=== PATIENT | female | born 1955 | race Asian ===

== ENCOUNTER 2017-11-02 08:35 | Outpatient (CLI) | payer OTHER ==
[2017-11-02 13:49] LABS: BASOPHILS % (AUTO) 0.8 %; EOSINOPHILS # (AUTO) 0.1 10^3/uL (0.0-0.7); EOSINOPHILS % (AUTO) 1.5 %; HCT - HEMATOCRIT 44.4 % (37.0-47.0); LYMPHOCYTES # (AUTO) 2.1 10^3/uL (1.5-3.5); LYMPHOCYTES % (AUTO) 39.1 %; MEAN CORPUSCULAR HEMOGLOBIN 30.8 pg (27.0-31.0); MEAN CORPUSCULAR HGB CONC 33.8 g/dL (32.0-36.0); MEAN CORPUSCULAR VOLUME 91.1 fL (81.0-99.0); MEAN PLATELET VOLUME 8.7 fL (7.9-10.8); MONOCYTES # (AUTO) 0.4 10^3/uL (0.0-1.0); NEUTROPHILS # (AUTO) 2.6 10^3/uL (1.5-6.6); NEUTROPHILS % (AUTO) 50.6 %; NUCLEATED RED BLOOD CELLS AUTO 0.1 /100WBC; RED BLOOD COUNT 4.87 10^6/uL (4.20-5.40); RED CELL DISTRIBUTION WIDTH 13.3 % (12.0-15.0); UNCORRECTED WHITE BLOOD COUNT 5.2 x10^3/uL; WHITE BLOOD COUNT 5.2 x10^3/uL (4.8-10.8)
[2017-11-02 14:01] LABS: ALBUMIN/GLOBULIN RATIO 1.3 (1.0-2.2); BILIRUBIN,TOTAL 0.6 mg/dL (0.2-1.0); BUN - BLOOD UREA NITROGEN 17 mg/dL (6-20); CALCIUM 9.6 mg/dL (8.5-10.3); CARBON DIOXIDE - CO2 30 mmol/L (21-32); CHLORIDE 98 mmol/L (101-111); CHOL/HDL RATIO 3.8 (<4.4); CHOLESTEROL 225 mg/dL; CREATININE 0.7 mg/dL (0.4-1.0); GFR - MDRD 85 (>89); GLUCOSE 97 mg/dL (70-100); HDL CHOLESTEROL 60 mg/dL; LDL/HDL RATIO 2.1 (<4.4); POTASSIUM 3.9 mmol/L (3.5-5.0); SODIUM 139 mmol/L (135-145); TOTAL PROTEIN 7.9 g/dL (6.7-8.2); TRIGLYCERIDES 194 mg/dL; VLDL CHOLESTEROL 39 mg/dL
== END 2017-11-02 08:36 | disposition home or self-care (01) ==
LOC: LAB.R 08:35
PROVIDERS: ATTEND Nurse Practitioner Primary Care
DX: I10 Essential (primary) hypertension (principal); Z79.899 Other long term (current) drug therapy; E78.5 Hyperlipidemia, unspecified
CPT/HCPCS: 80053; 80061; 85025

== ENCOUNTER 2017-11-17 07:51 | Outpatient (CLI) | payer OTHER ==
--- NOTE | 2017-11-18 17:15 | Mammography Report ---
EXAM: DIGITAL BILATERAL SCREENING MAMMOGRAM: 11/17/2017 CLINICAL INDICATION: A 62-year-old with history of bilateral implants, for screening. COMPARISON: 10/2015, 06/2013, 04/2011, 12/2008, 11/2007. TECHNIQUE: Routine CC and MLO projections were obtained of the breasts. Bilateral implant-displaced views. FINDINGS: The breasts again demonstrate scattered fibroglandular densities bilaterally. Bilateral subglandular silicone implants are stable. No suspicious masses, clustered microcalcifications, or regions of architectural distortion are identified. IMPRESSION: BENIGN FINDINGS. RECOMMENDATIONS: Routine annual screening unless otherwise clinically indicated. BIRADS CATEGORY 2-BENIGN FINDINGS. STANDARD QUALIFYING STATEMENTS: 1. This examination was reviewed with the aid of Computer-Aided Detection (CAD) . 2. A negative or benign imaging report should not delay biopsy if clinically suspicious findings are present. Consider surgical consultation if warranted. More than 5% of cancers are not identified by imaging. 3. Dense breasts may obscure an underlying neoplasm. TD: 11/18/2017 17:14 NOHEMI
== END 2017-11-17 07:52 | disposition home or self-care (01) ==
LOC: DI 07:51
PROVIDERS: ATTEND Nurse Practitioner Primary Care
DX: Z12.31 Encounter for screening mammogram for malignant neoplasm of breast (principal); Z00.00 Encounter for general adult medical examination without abnormal findings
CPT/HCPCS: 77067

== ENCOUNTER 2017-11-17 07:52 | Outpatient (CLI) | payer OTHER ==
--- NOTE | 2017-11-19 11:56 | DEXA Report ---
DEXA SCAN: 11/17/2017 CLINICAL INDICATION: Postmenopausal. TECHNIQUE: Dual energy x-ray absorptiometry (DXA) was performed on a [employer] system. Regions measured are the AP spine, femoral neck, and, if needed, forearm. COMPARISON: None. In accordance with the International Society for Clinical Densitometry (ISCD) guidelines, data from previous exams may be reanalyzed using current recommendations and techniques. This is done to allow a more accurate basis for comparison with the current study. FINDINGS: The data for the lumbar spine is as follows: REGION BMD (g/cm/cm) T-SCORE Z-SCORE L1 1.233 0.9 2.3 L2 1.374 1.5 2.9 L3 1.482 2.3 3.8 L4 1.559 3.0 4.5 TOTAL 1.427 2.1 3.5 NOTE: All evaluable vertebrae are used for classification. The data for the hip is as follows: REGION BMD (g/cm/cm) T-SCORE Z-SCORE Neck 0.736 -2.2 -0.8 TOTAL 0.919 -0.7 0.4 IMPRESSION: THE WHO CLASSIFICATION BASED ON THE INTERNATIONAL REFERENCE STANDARD IS OSTEOPENIA . THE FRACTURE RISK IS INCREASED. RECOMMENDATION: Patients with diagnosis of osteoporosis or osteopenia should have regular bone mineral density assessment. For those eligible for Medicare, routine testing is allowed once every 2 years. Testing frequency can be increased for patients who have rapidly progressing disease or for those who are receiving medical therapy to restore bone mass. COMMENT: World Health Organization (WHO) definitions for osteoporosis and osteopenia: NORMAL BMD: T-score at 1.0 or higher, fracture risk is low. OSTEOPENIA BMD: T-score between 1.0 and -2.5, fracture risk is increased. OSTEOPOROSIS BMD: T-score at 2.5 or lower, fracture risk high. National Osteoporosis Foundation recommends: 1. Obtain adequate dietary calcium (at least 1200 mg per day) and vitamin D (400 -800 international units per day). 2. Participate, as appropriate, in regular weightbearing and muscle- strengthening exercise. 3. Avoid tobacco use and reduce alcohol and caffeine intake. 4. For more detailed information see the website at www.NOF.org. GIOVANNI/ TD: 11/18/2017 10:22 [id number]
== END 2017-11-17 07:53 | disposition home or self-care (01) ==
LOC: DI 07:52
PROVIDERS: ATTEND Nurse Practitioner Primary Care
DX: Z78.0 Asymptomatic menopausal state (principal); M85.80 Other specified disorders of bone density and structure, unspecified site
CPT/HCPCS: 77080

== ENCOUNTER 2017-12-28 09:21 | Outpatient (CLI) | payer OTHER | END 2017-12-28 09:22 | disposition home or self-care (01) | LOC: SC 09:21 | PROVIDERS: ATTEND Internal Medicine Pulmonary Disease | DX: G47.10 Hypersomnia, unspecified (principal); G47.9 Sleep disorder, unspecified; R06.83 Snoring | CPT/HCPCS: 99203; 99212 ==

== ENCOUNTER 2018-01-05 20:10 | Outpatient (CLI) | payer OTHER | END 2018-01-05 20:11 | disposition home or self-care (01) | LOC: SC 20:10 | PROVIDERS: ATTEND Internal Medicine Pulmonary Disease | DX: G47.33 Obstructive sleep apnea (adult) (pediatric) (principal); G47.61 Periodic limb movement disorder | CPT/HCPCS: 95810 ==

== ENCOUNTER 2018-02-02 09:21 | Outpatient (CLI) | payer OTHER | END 2018-02-02 09:22 | disposition home or self-care (01) | LOC: SC 09:21 | PROVIDERS: ATTEND Internal Medicine Pulmonary Disease | DX: G47.33 Obstructive sleep apnea (adult) (pediatric) (principal) | CPT/HCPCS: 99212; 99213 ==

== ENCOUNTER 2018-09-06 13:00 | Day surgery (SDC) | payer OTHER ==
[2018-09-06] MEDS ORDERED: LACTATED RINGERS 1,000 ML IV ONE (13:17)
[2018-09-06] MEDS ORDERED: LIDO GARGLE 30 ML BOTTLE ONE (14:02)
[2018-09-06] MEDS ORDERED: fentaNYL 250 MCG/5 ML VIAL IVP ONE (14:16)
[2018-09-06] MEDS ORDERED: MIDAZOLAM 2 MG/2 ML VIAL IVP ONE (14:16)
[2018-09-06] MEDS ORDERED: LIDO GARGLE 30 ML BOTTLE PO ONE (14:25)
[2018-09-06 15:33] VITALS: BP 144/68
== END 2018-09-06 13:01 | disposition home or self-care (01) ==
LOC: SDS 13:00
PROVIDERS: ATTEND Surgery
PROC: 0DB78ZX Excision of Stomach, Pylorus, Via Natural or Artificial Opening Endoscopic, Diagnostic (ICD-10-PCS; principal; 2018-09-06 14:15)
DX: K92.1 Melena (principal); K92.0 Hematemesis; K29.60 Other gastritis without bleeding; K31.7 Polyp of stomach and duodenum; I10 Essential (primary) hypertension
CPT/HCPCS: 43239; 87081; A9270; J3010; J7120

== ENCOUNTER 2018-11-03 08:42 | Outpatient (CLI) | payer OTHER ==
[2018-11-03 13:39] LABS: BASOPHILS % (AUTO) 0.7 %; EOSINOPHILS # (AUTO) 0.2 10^3/uL (0.0-0.7); EOSINOPHILS % (AUTO) 3.2 %; HGB - HEMOGLOBIN 12.1 g/dL (12.0-16.0); LYMPHOCYTES # (AUTO) 1.3 10^3/uL (1.5-3.5); LYMPHOCYTES % (AUTO) 26.1 %; MEAN CORPUSCULAR HEMOGLOBIN 25.8 pg (27.0-31.0); MEAN CORPUSCULAR HGB CONC 32.3 g/dL (32.0-36.0); MEAN CORPUSCULAR VOLUME 79.9 fL (81.0-99.0); MEAN PLATELET VOLUME 8.3 fL (7.9-10.8); MONOCYTES # (AUTO) 0.5 10^3/uL (0.0-1.0); MONOCYTES % (AUTO) 10.7 %; NEUTROPHILS # (AUTO) 2.9 10^3/uL (1.5-6.6); NEUTROPHILS % (AUTO) 59.3 %; PLT - PLATELET COUNT 252 10^3/uL (130-450); RED BLOOD COUNT 4.68 10^6/uL (4.20-5.40); RED CELL DISTRIBUTION WIDTH 17.2 % (12.0-15.0); WHITE BLOOD COUNT 4.9 x10^3/uL (4.8-10.8)
[2018-11-03 13:58] LABS: ALBUMIN/GLOBULIN RATIO 1.3 (1.0-2.2); ALKALINE PHOSPHATASE 60 IU/L (42-121); ALT ALANINE AMINOTRANSFERASE 20 IU/L (10-60); AST ASPARTATE AMINOTRANSFERASE 25 IU/L (10-42); BILIRUBIN,TOTAL 0.5 mg/dL (0.2-1.0); BUN - BLOOD UREA NITROGEN 15 mg/dL (6-20); CALCIUM 8.8 mg/dL (8.5-10.3); CARBON DIOXIDE - CO2 28 mmol/L (21-32); CHLORIDE 104 mmol/L (101-111); CHOL/HDL RATIO 3.9 (<4.4); CHOLESTEROL 231 mg/dL; CREATININE 0.3 mg/dL (0.4-1.0); GFR - MDRD 224 (>89); GLUCOSE 94 mg/dL (70-100); HDL CHOLESTEROL 59 mg/dL; LDL CHOLESTEROL,CALCULATED 144 mg/dL; LDL/HDL RATIO 2.4 (<4.4); SODIUM 137 mmol/L (135-145); TOTAL PROTEIN 7.2 g/dL (6.7-8.2); VLDL CHOLESTEROL 28 mg/dL
== END 2018-11-03 23:59 | disposition home or self-care (01) ==
LOC: LAB.R 08:42
PROVIDERS: ATTEND Nurse Practitioner Primary Care
DX: I10 Essential (primary) hypertension (principal); Z79.899 Other long term (current) drug therapy; E78.5 Hyperlipidemia, unspecified
CPT/HCPCS: 80053; 80061; 83721; 85025

== ENCOUNTER 2018-11-10 11:40 | Outpatient (CLI) | payer OTHER ==
[2018-11-10 14:12] LABS: BASOPHILS % (AUTO) 0.6 %; EOSINOPHILS # (AUTO) 0.1 10^3/uL (0.0-0.7); HGB - HEMOGLOBIN 12.7 g/dL (12.0-16.0); LYMPHOCYTES # (AUTO) 1.6 10^3/uL (1.5-3.5); LYMPHOCYTES % (AUTO) 33.1 %; MEAN CORPUSCULAR HEMOGLOBIN 25.8 pg (27.0-31.0); MEAN CORPUSCULAR HGB CONC 32.6 g/dL (32.0-36.0); MEAN CORPUSCULAR VOLUME 79.2 fL (81.0-99.0); MEAN PLATELET VOLUME 8.5 fL (7.9-10.8); MEAN RETIC VALUE 113.8; MONOCYTES # (AUTO) 0.3 10^3/uL (0.0-1.0); MONOCYTES % (AUTO) 6.8 %; NEUTROPHILS # (AUTO) 2.7 10^3/uL (1.5-6.6); NEUTROPHILS % (AUTO) 57.5 %; PLT - PLATELET COUNT 279 10^3/uL (130-450); RED BLOOD COUNT 4.92 10^6/uL (4.20-5.40); RED CELL DISTRIBUTION WIDTH 18.2 % (12.0-15.0); WHITE BLOOD COUNT 4.8 x10^3/uL (4.8-10.8)
[2018-11-10 14:31] LABS: ALBUMIN 4.4 g/dL (3.2-5.5); ALBUMIN/GLOBULIN RATIO 1.3 (1.0-2.2); ALKALINE PHOSPHATASE 69 IU/L (42-121); ALT ALANINE AMINOTRANSFERASE 19 IU/L (10-60); AST ASPARTATE AMINOTRANSFERASE 26 IU/L (10-42); BILIRUBIN,TOTAL 0.5 mg/dL (0.2-1.0); BUN - BLOOD UREA NITROGEN 15 mg/dL (6-20); CARBON DIOXIDE - CO2 28 mmol/L (21-32); CHLORIDE 101 mmol/L (101-111); CHOL/HDL RATIO 4.1 (<4.4); CHOLESTEROL 253 mg/dL; CREATININE 0.8 mg/dL (0.4-1.0); GFR - MDRD 72 (>89); GLUCOSE 90 mg/dL (70-100); HDL CHOLESTEROL 61 mg/dL; LDL CHOLESTEROL,CALCULATED 154 mg/dL; LDL/HDL RATIO 2.5 (<4.4); SODIUM 134 mmol/L (135-145); TOTAL PROTEIN 7.9 g/dL (6.7-8.2); VLDL CHOLESTEROL 38 mg/dL
[2018-11-10 14:41] LABS: FERRITIN 9.9 ng/mL (11.0-306.8)
== END 2018-11-10 23:59 | disposition home or self-care (01) ==
LOC: LAB.R 11:40
PROVIDERS: ATTEND Nurse Practitioner Primary Care
DX: Z00.00 Encounter for general adult medical examination without abnormal findings (principal); R71.8 Other abnormality of red blood cells; K92.2 Gastrointestinal hemorrhage, unspecified; Z79.899 Other long term (current) drug therapy; E78.5 Hyperlipidemia, unspecified; I10 Essential (primary) hypertension; R89.9 Unspecified abnormal finding in specimens from other organs, systems and tissues
CPT/HCPCS: 80053; 80061; 82607; 82728; 83010; 83721; 85025; 85044; 86880

== ENCOUNTER 2019-01-18 09:08 | Outpatient (CLI) | payer OTHER ==
[2019-01-18 14:10] LABS: BASOPHILS % (AUTO) 0.8 %; EOSINOPHILS # (AUTO) 0.1 10^3/uL (0.0-0.7); EOSINOPHILS % (AUTO) 2.6 %; HGB - HEMOGLOBIN 13.5 g/dL (12.0-16.0); LYMPHOCYTES # (AUTO) 1.6 10^3/uL (1.5-3.5); LYMPHOCYTES % (AUTO) 39.4 %; MEAN CORPUSCULAR HEMOGLOBIN 28.6 pg (27.0-31.0); MEAN CORPUSCULAR HGB CONC 32.3 g/dL (32.0-36.0); MEAN CORPUSCULAR VOLUME 88.7 fL (81.0-99.0); MEAN PLATELET VOLUME 8.5 fL (7.9-10.8); MONOCYTES # (AUTO) 0.4 10^3/uL (0.0-1.0); MONOCYTES % (AUTO) 8.6 %; NEUTROPHILS % (AUTO) 48.6 %; PLT - PLATELET COUNT 207 10^3/uL (130-450); RED BLOOD COUNT 4.71 10^6/uL (4.20-5.40); RED CELL DISTRIBUTION WIDTH 21.5 % (12.0-15.0); WHITE BLOOD COUNT 4.1 x10^3/uL (4.8-10.8)
[2019-01-18 14:32] LABS: CHOL/HDL RATIO 4.7 (<4.4); CHOLESTEROL 253 mg/dL; HDL CHOLESTEROL 54 mg/dL; LDL CHOLESTEROL,CALCULATED 157 mg/dL; LDL/HDL RATIO 2.9 (<4.4); VLDL CHOLESTEROL 42 mg/dL
== END 2019-01-18 23:59 | disposition home or self-care (01) ==
LOC: LAB.R 09:08
PROVIDERS: ATTEND Nurse Practitioner Primary Care
DX: R71.8 Other abnormality of red blood cells (principal); E78.5 Hyperlipidemia, unspecified
CPT/HCPCS: 80061; 82728; 83721; 85025

== ENCOUNTER 2021-01-02 08:00 | Outpatient (CLI) | payer MEDICARE, OTHER ==
[2021-01-02 10:35] LABS: ABSOLUTE RETICS # AUTO 0.085 10^6/uL (0.020-0.110); BASOPHILS % (AUTO) 0.8 %; EOSINOPHILS # (AUTO) 0.1 10^3/uL (0.0-0.7); EOSINOPHILS % (AUTO) 1.4 %; HGB - HEMOGLOBIN 13.7 g/dL (12.0-16.0); LYMPHOCYTES # (AUTO) 1.8 10^3/uL (1.5-3.5); LYMPHOCYTES % (AUTO) 35.4 %; MEAN CORPUSCULAR HEMOGLOBIN 31.1 pg (27.0-31.0); MEAN CORPUSCULAR HGB CONC 32.9 g/dL (32.0-36.0); MEAN CORPUSCULAR VOLUME 94.5 fL (81.0-99.0); MEAN PLATELET VOLUME 10.7 fL (7.9-10.8); MONOCYTES # (AUTO) 0.4 10^3/uL (0.0-1.0); MONOCYTES % (AUTO) 8.7 %; NEUTROPHILS # (AUTO) 2.7 10^3/uL (1.5-6.6); NEUTROPHILS % (AUTO) 53.5 %; PLT - PLATELET COUNT 212 10^3/uL (130-450); RED CELL DISTRIBUTION WIDTH 12.2 % (12.0-15.0); WHITE BLOOD COUNT 5.1 x10^3/uL (4.8-10.8)
[2021-01-02 11:11] LABS: % IRON SATURATION 32 % (20-50); ALBUMIN 4.1 g/dL (3.2-5.5); ALBUMIN/GLOBULIN RATIO 1.3 (1.0-2.2); ALKALINE PHOSPHATASE 55 IU/L (42-121); ALT ALANINE AMINOTRANSFERASE 25 IU/L (10-60); AST ASPARTATE AMINOTRANSFERASE 25 IU/L (10-42); BILIRUBIN,TOTAL 0.6 mg/dL (0.2-1.0); BUN - BLOOD UREA NITROGEN 22 mg/dL (6-20); CALCIUM 9.5 mg/dL (8.5-10.3); CARBON DIOXIDE - CO2 25 mmol/L (21-32); CHLORIDE 97 mmol/L (101-111); CHOL/HDL RATIO 4.8 (<4.4); CHOLESTEROL 281 mg/dL; CREATININE 0.8 mg/dL (0.4-1.0); GLUCOSE 105 mg/dL (70-100); HDL CHOLESTEROL 58 mg/dL; IRON 138 ug/dL (28-170); LDL CHOLESTEROL,CALCULATED 177 mg/dL; LDL/HDL RATIO 3.1 (<4.4); TOTAL IRON BINDING CAPACITY 427 ug/dL (250-450); TOTAL PROTEIN 7.2 g/dL (6.7-8.2); TRANSFERRIN 305 mg/dL (192-382); VLDL CHOLESTEROL 46 mg/dL
[2021-01-02 11:28] LABS: FERRITIN 46.8 ng/mL (11.0-306.8)
== END 2021-01-02 23:59 | disposition home or self-care (01) ==
LOC: LAB 08:00
PROVIDERS: ATTEND Family Medicine
DX: R71.8 Other abnormality of red blood cells (principal); K92.2 Gastrointestinal hemorrhage, unspecified; D12.6 Benign neoplasm of colon, unspecified; E78.5 Hyperlipidemia, unspecified; I10 Essential (primary) hypertension
CPT/HCPCS: 36415; 80053; 80061; 82607; 82728; 82746; 83540; 83721; 84443; 84466; 85025; 85045

== ENCOUNTER 2021-01-09 08:00 | Outpatient (CLI) | payer MEDICARE ==
[2021-01-09 16:57] LABS: % IRON SATURATION 22 % (20-50); IRON 97 ug/dL (28-170); TOTAL IRON BINDING CAPACITY 437 ug/dL (250-450); TRANSFERRIN 312 mg/dL (192-382)
== END 2021-01-09 23:59 | disposition home or self-care (01) ==
LOC: LAB 08:00
PROVIDERS: ATTEND Family Medicine
DX: E83.10 Disorder of iron metabolism, unspecified (principal)
CPT/HCPCS: 36415; 82728; 83540; 84466

== ENCOUNTER 2021-01-23 08:53 | Outpatient (CLI) | payer MEDICARE ==
--- NOTE | 2021-01-24 10:13 | Mammography Report ---
BILATERAL DIGITAL SCREENING MAMMOGRAM WITH AUGMENTATION: 01/23/2021 CLINICAL: Routine screening. Comparison is made to exams dated: 11/17/2017 mammogram, 11/20/2015 mammogram, and 09/06/2013 mammogr am - Merged with [facility]. There are scattered fibroglandular elements in both breasts. Bilateral breast implants are stable and intact. No significant masses, calcifications, or other findings are seen in either breast. There has been no significant interval change. IMPRESSION: NEGATIVE There is no mammographic evidence of malignancy. A 1 year screening mammogram is recommended. This exam was interpreted at Station ID: [id number]. NOTE: For mammograms, a report in lay terms will be sent to the patient. Approximately 15% of breast malignancies will not be visualized mammographically. In the management of a palpable breast mass, a negative mammogram must not discourage biopsy of a clinically suspicious lesion. Electronically Signed By: Jesse Harris M.D. slc/penrad:01/23/2021 12:39:34 ACR BI-RADS Category 1: Negative 3341F PARENCHYMAL PATTERN: (A) - The breast(s) demonstrate(s) scattered fibroglandular densities. BI-RADS CATEGORY: (1) - 1 RECOMMENDATION: (ANNUAL) - Recommend routine annual screening mammography. [id number] 1 year screening LATERALITY: (B)
== END 2021-01-23 08:54 | disposition home or self-care (01) ==
LOC: DI.N 08:53
PROVIDERS: ATTEND Family Medicine
DX: Z12.31 Encounter for screening mammogram for malignant neoplasm of breast (principal); Z98.82 Breast implant status

== ENCOUNTER 2021-02-06 08:17 | Outpatient (CLI) | payer MEDICARE ==
--- NOTE | 2021-02-06 11:01 | DEXA Report ---
PROCEDURE: Dexa Spine and/or Hip INDICATIONS: OSTEOPOROSIS TECHNIQUE: Dual energy x-ray absorptiometry (DXA) was performed on a [employer] System. Regions measur ed are the AP Spine, femoral neck, and if needed forearm. COMPARISON: Prior similar study 11/17/2017. FINDINGS: Lumbar Spine: Bone Mineral Density 1.5-6 g/cm/cm,T score 2.9, normal, and the results of this study represent a statistically significant 6.9% interval improvement in bone mineral density over the lumbosacral spin e with reference to the 11/17/2017 prior study. Left Hip: Bone Mineral Density 0.906 g/cm/cm,T score -0.8, normal, and this represents a statistically insigni ficant change from the prior study in 2017. Left Femoral Neck: Bone Mineral Density 0.716 g/cm/cm, T score -2.3, osteopenia. (T score greater or equal to -1.0: NORMAL) (T score from -1.1 to -2.4: OSTEOPENIA) (T score less than or equal to -2.5 to: OSTEOPOROSIS) Impression: Normal bone mineral density with a statistically significant improvement along the lumbos acral spine, and no significant change with normal bone mineral density at the left hip overall. The left femoral neck again shows osteopenia. Patients with diagnosis of osteoporosis or osteopenia should have regular bone mineral density assess ment. For those eligible for Medicare, routine testing is allowed once every 2 years. Testing frequ ency can be increased for patients who have rapidly progressing disease or for those who are receivin g medical therapy to restore bone mass. Reviewed by: Rna Velasquez MD on 02/06/2021 10:00 AM [facility] Approved by: Ran Velasquez MD on 02/06/2021 10:00 AM [facility] Station ID: [id number]
== END 2021-02-06 08:18 | disposition home or self-care (01) ==
LOC: DI 08:17
PROVIDERS: ATTEND Family Medicine
DX: M85.88 Other specified disorders of bone density and structure, other site (principal)

== ENCOUNTER 2023-07-31 19:48 | Emergency (ER) | payer MEDICARE ==
[2023-07-31 20:01] VITALS: BP 159/98; O2SAT 100
--- NOTE | 2023-07-31 20:10 | ED Physician Documentation ---
PD HPI UPPER EXT INJURY - Stated complaint Stated Complaint: RT FINGER SWOLLEN - Chief complaint Chief Complaint: Ext Problem - History obtained from History obtained from: Patient - Additonal information Additional information: 68yF with pmh htn p/w R 2nd finger swelling, redness and pain X 1 day. patient had infection of the same finger recently that resolved with antibiotics. denies fever, denies injury. no pain with rom. 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 - Present Medications Home Medications: Ambulatory Orders Medication Instructions Recorded Confirmed Calcium Carb & Citrate/Vit D3 1 each PO DAILY 02/07/15 09/06/18 [Calcium + Vitamin D3 Caplet] Cholecalciferol (Vitamin D3) 2,000 unit PO DAILY 02/07/15 02/08/15 [Vitamin D-3] Glucosam/Terrence-Msm1/C/Shailesh/Bosw 1 each PO DAILY 02/07/15 09/06/18 [Osteo Bi-Flex Caplet] Glucosamine Sulfate Dipot Chlr 1,000 mg PO DAILY 02/07/15 09/06/18 [Glucosamine] Krill/Om-3/Dha/Epa/Phospho/Ast 1 each PO DAILY 02/07/15 02/08/15 [Krill Oil 500 mg Softgel] Lactobacillus Acidophilus 1 each PO DAILY 02/07/15 02/08/15 [Probiotic] Multivitamin/Iron/Folic Acid 1 each PO DAILY 02/07/15 09/06/18 [Centrum Ultra Women's Tablet] Telmisartan [Micardis] 10 mg PO DAILY 02/07/15 09/06/18 cephALEXin [Keflex] 500 mg PO Q6H #28 tab 07/31/23 - Allergies Allergies/Adverse Reactions: Allergies Allergy/AdvReac Type Severity Reaction Status Date / Time aspirin Allergy Unknown Verified 07/31/23 19:58 PD ED PE NORMAL - Vitals Vital signs reviewed: Yes - General General: Alert and oriented X 3, No acute distress, Well developed/nourished - HEENT HEENT: Atraumatic, PERRL, EOMI - Derm Derm: Normal color, Warm and dry, Other (mild swelling, warmth and rubor of R 2nd distal finger at dorsal and palmar aspect. good capillary refill, normal sensation, normal movement at dip joint, nontender) Results - Vitals Vitals: Vital Signs - 24 hr 07/31/23 19:53 Temperature 36.5 C Heart Rate 84 Respiratory 16 Rate Blood Pressure 159/98 H O2 Saturation 100 Oxygen O2 Source Room air PD Medical Decision Making - ED course ED course: 68yF p/w R second finger recurrent cellulitis. xr ordered to confirm no osteo. looks benign. antibiotics sent. return precautions given. plan to f/u pcp Departure - Departure Disposition: Home, Self Care Clinical Impression: Pain in extremity, Swelling of finger, Cellulitis of finger Condition: Stable Instructions: Cellulitis Dc Prescriptions: cephALEXin [Keflex] 500 mg PO Q6H #28 tab Comments: You were seen in the ED for skin infection of the 2nd finger of your right hand. Antibiotics were sent electronically to [facility] in [place]. Follow up with your primary care provider and return to the ED or see a healthcare provider for recheck if you do not have improvement in 48 hours. Forms: PCP List
--- NOTE | 2023-07-31 20:38 | XRAY Report ---
PROCEDURE: Finger(s) RT INDICATIONS: R 2nd finger TECHNIQUE: AP hand, 2 views of the second finger(s) acquired. COMPARISON: None. FINDINGS: Bones: No fractures or dislocations. No suspicious bony lesions. Interphalangeal joint space narrow ing with osteophytosis. Soft tissues: No suspicious soft tissue calcifications or masses. IMPRESSION: No acute bony abnormality. Moderate interphalangeal osteoarthritis. Reviewed by: Ulices Burt on 07/31/2023 8:36 PM PDT Approved by: Ulices Burt on 07/31/2023 8:36 PM PDT Station ID: [id number]
[2023-07-31] MEDS ORDERED: LIDOCAINE 1% 2 ML VIAL MC ONE (20:59)
[2023-07-31] MEDS ORDERED: cefTRIAXone 1 GM VIAL IM STA (20:59)
== END 2023-07-31 21:34 | disposition home or self-care (01) ==
LOC: ED 19:48
DX: L03.011 Cellulitis of right finger (principal)
CPT/HCPCS: 96372; 99283

== ENCOUNTER 2023-09-17 06:25 | Day surgery (SDC) | payer MEDICARE ==
[2023-09-17] MEDS ORDERED: LACTATED RINGERS 1,000 ML IV ONE ×2 (06:30→08:12)
[2023-09-17] MEDS ORDERED: PROPOFOL 500 MG/50 ML 500 MG/50 ML VIAL ONE (06:50)
[2023-09-17] MEDS ORDERED: GLYCOPYRROLATE 1 MG/5 ML VIAL ONE (06:50)
[2023-09-17 06:51] VITALS: O2SAT 100
--- NOTE | 2023-09-17 07:05 | ANESTHESIA ---
Pre-Anesthesia VS, & Labs - Diagnosis screening - Procedure colonoscopy Vital Signs: Temp Pulse Resp BP Pulse Ox O2 Flow Rate 36.0 C L 79 18 163/86 H 100 0 09/17/23 06:38 09/17/23 06:38 09/17/23 06:38 09/17/23 06:38 09/17/23 06:38 09/17/23 06:38 Height: 5 ft 2 in Weight (kg): 62.3 kg Body Mass Index: 25.1 BMI Classification: Overweight - NPO >8 hours - Is Patient ?: No - Lab Results Lab results reviewed: Yes Home Medications and Allergies Calcium Carb & Citrate/Vit D3 [Calcium + Vitamin D3 Caplet] 1 each PO DAILY 02/07/15 Cholecalciferol (Vitamin D3) [Vitamin D-3] 2,000 unit PO DAILY 02/07/15 Glucosam/Terrence-Msm1/C/Shailesh/Bosw [Osteo Bi-Flex Caplet] 1 each PO DAILY 02/07/15 Glucosamine Sulfate Dipot Chlr [Glucosamine] 1,000 mg PO DAILY 02/07/15 Lactobacillus Acidophilus [Probiotic] 1 each PO DAILY 02/07/15 Multivitamin/Iron/Folic Acid [Centrum Ultra Women's Tablet] 1 each PO DAILY 02/07/15 Telmisartan [Micardis] 40 mg PO DAILY 02/07/15 Allergies/Adverse Reactions: Allergies Allergy/AdvReac Type Severity Reaction Status Date / Time aspirin Allergy Mild Unknown Verified 09/16/23 13:11 Anes History & Medical History - Anesthetic History Anesthesia Complications: reports: No previous complications Family history of Anesthesia Complications: Denies Family history of Malignant Hyperthermia: Denies - Medical History Cardiovascular: reports: Hypertension Pulmonary: reports: None Gastrointestinal: reports: GI bleed (hx) Urinary: reports: None Musculoskeletal: reports: None Endocrine/Autoimmune: reports: None Skin: reports: None Smoking Status: Never smoker Psychosocial: reports: No issues indicated - Surgical History Gynecologic: reports: Breast implants Exam General: Alert, Oriented x3, Cooperative Dental: WNL Mouth Openin Fingerbreadth Neck Mobility: Normal Mallampati classification: II Thyromental Distance: 4-6 cm Respiratory: Lungs clear Cardiovascular: Regular rate Plan Anesthesia Type: General, MAC Consent for Procedure(s) Verified and Reviewed: Yes Code Status: Attempt Resuscitation ASA classification: 2-Mild systemic disease Is this case an emergency?: No
[2023-09-17] MEDS ORDERED: ePHEDrine 50 MG/ML VIAL IVP ONE (08:00)
[2023-09-17 08:50] VITALS: BP 131/78
--- NOTE | 2023-09-17 19:16 | ANESTHESIA POST OP EVALUATION ---
Anesthesia Post Eval - Post Anesthesia Eval Vitals: Last Vital Signs Temp 36.0 C L 09/17/23 08:35 Pulse 74 09/17/23 08:35 Resp 16 09/17/23 08:35 BP 131/78 H 09/17/23 08:35 Pulse Ox 100 09/17/23 08:35 O2 Flow Rate 0 09/17/23 06:38 CV Function Including HR & BP: Stable Pain Control: Satisfactory Nausea & Vomiting: Negative Mental Status: Baseline Respiratory Status: Airway Patent Hydration Status: Satisfactory Anesthesia Complications: None
== END 2023-09-17 06:26 | disposition home or self-care (01) ==
LOC: SDS 06:25
PROVIDERS: ATTEND Surgery
DX: Z12.11 Encounter for screening for malignant neoplasm of colon (principal); Z86.010 Personal history of colon polyps
CPT/HCPCS: G0105; J7120

== ENCOUNTER 2023-09-25 08:52 | Outpatient (CLI) | payer MEDICARE ==
--- NOTE | 2023-09-28 11:31 | Mammography Report ---
BILATERAL DIGITAL SCREENING MAMMOGRAM 3D/2D WITH EXAGGERATED CC: 09/25/2023 CLINICAL: Routine screening. Comparison is made to exams dated: 01/23/2021 mammogram, 11/17/2017 mammogram, and 11/20/2015 mammogr am - . There are scattered areas of fibroglandular density in both breasts (category b / 25%-50% glandular t issue). There are benign post operative findings in both breasts. No significant masses, calcifications, or other findings are seen in either breast. There has been no significant interval change. IMPRESSION: BENIGN There is no mammographic evidence of malignancy. A 1 year screening mammogram is recommended. Based on the Tyrer Cuzick model (a risk assessment model) the patients lifetime risk is 3.3% and her 10 year risk is 2.0%. According to the ACR, ACS, and NCCN guidelines, an annual breast MRI exam damaso g with mammogram is recommended if the patients lifetime risk is 20% or greater. This exam was interpreted at Station ID: [id number]. NOTE: For mammograms, a report in lay terms will be sent to the patient. Approximately 15% of breast malignancies will not be visualized mammographically. In the management of a palpable breast mass, a negative mammogram must not discourage biopsy of a clinically suspicious lesion. Electronically Signed By: Tristin pelayo/slim:09/25/2023 21:25:44 letter sent: No_Letter ACR BI-RADS Category 2: Benign Finding(s) 3342F PARENCHYMAL PATTERN: (A) - The breast(s) demonstrate(s) scattered fibroglandular densities. BI-RADS CATEGORY: (2) - 2 Mammogram [id number] 1 year screening LATERALITY: (B)
== END 2023-09-25 08:53 | disposition home or self-care (01) ==
LOC: DI 08:52
DX: Z12.31 Encounter for screening mammogram for malignant neoplasm of breast (principal); R92.323 Mammographic fibroglandular density, bilateral breasts

== ENCOUNTER 2023-11-04 09:00 | Outpatient (CLI) | payer MEDICARE ==
--- NOTE | 2023-11-04 10:50 | DEXA Report ---
PROCEDURE: Dexa Spine and/or Hip INDICATIONS: SCREENING FOR OSTEOPOROSIS TECHNIQUE: Dual energy x-ray absorptiometry (DXA) was performed on a [employer]. Regions measur ed are the AP Spine, femoral neck, and if needed forearm. COMPARISON: DEXA 02/06/2021 FINDINGS: Lumbar Spine: Bone Mineral Density 1.503 g/cm/cm,T score 2.8, compared to 2.9. Left Femoral Neck: Bone Mineral Density 0.681 g/cm/cm, T score -2.6, compared to -2.3. Left Hip: Bone Mineral Density 0.892 g/cm/cm,T score -0.9 compared to -0.8. (T score greater or equal to -1.0: NORMAL) (T score from -1.1 to -2.4: OSTEOPENIA) (T score less than or equal to -2.5 to: OSTEOPOROSIS) Impression: By WHO criteria, this patient has osteoporosis, progressive of the hip. Patients with diagnosis of osteoporosis or osteopenia should have regular bone mineral density assess ment. For those eligible for Medicare, routine testing is allowed once every 2 years. Testing frequ ency can be increased for patients who have rapidly progressing disease or for those who are receivin g medical therapy to restore bone mass. Reviewed by: Yola Diamond MD on 11/04/2023 10:49 AM PST Approved by: Yola Diamond MD on 11/04/2023 10:49 AM PST Station ID: [id number]
== END 2023-11-04 09:01 | disposition home or self-care (01) ==
LOC: DI 09:00
PROVIDERS: ATTEND Family Medicine
DX: M81.0 Age-related osteoporosis without current pathological fracture (principal)

== ENCOUNTER 2023-12-14 10:21 | Outpatient (CLI) | payer MEDICARE ==
[2023-12-14 10:47] LABS: ESTIMATED AVERAGE GLUCOSE 137 mg/dL (70-100); HEMOGLOBIN A1c% 6.4 % (4.27-6.07)
[2023-12-14 11:15] LABS: BUN - BLOOD UREA NITROGEN 17 mg/dL (6-20); CALCIUM 9.5 mg/dL (8.5-10.3); CARBON DIOXIDE - CO2 30 mmol/L (21-32); CHLORIDE 100 mmol/L (101-111); CHOL/HDL RATIO 3.6 (<4.4); CHOLESTEROL 217 mg/dL; CREATININE 0.7 mg/dL (0.6-1.3); GFR - MDRD 83 (>89); GLUCOSE 110 mg/dL (74-104); HDL CHOLESTEROL 60 mg/dL; POTASSIUM 4.1 mmol/L (3.5-4.5); SODIUM 136 mmol/L (135-145)
[2023-12-14 11:17] LABS: MICROALBUM/CREATININE RATIO,UR 9.3 ug/mg (<30.0); MICROALBUMIN,URINE 1.1 mg/dL
[2023-12-14 13:11] LABS: LDL CHOLESTEROL,CALCULATED 113 mg/dL; LDL/HDL RATIO 1.9 (<4.4); TRIGLYCERIDES 218 mg/dL (48-352); VLDL CHOLESTEROL 44 mg/dL
== END 2023-12-14 10:22 | disposition home or self-care (01) ==
LOC: LAB 10:21
PROVIDERS: ATTEND Family Medicine
DX: I10 Essential (primary) hypertension (principal); R73.03 Prediabetes
CPT/HCPCS: 36415; 80048; 80061; 82043; 82570; 83036; 83721

== ENCOUNTER 2024-04-11 09:29 | Outpatient (CLI) | payer MEDICARE ==
[2024-04-11 10:02] LABS: CALCIUM 9.3 mg/dL (8.5-10.3); CREATININE 0.7 mg/dL (0.6-1.3)
[2024-04-11 10:03] LABS: ESTIMATED AVERAGE GLUCOSE 137 mg/dL (70-100); HEMOGLOBIN A1c% 6.4 % (4.27-6.07)
== END 2024-04-11 09:30 | disposition home or self-care (01) ==
LOC: LAB 09:29
PROVIDERS: ATTEND Family Medicine
DX: I10 Essential (primary) hypertension (principal); R73.09 Other abnormal glucose
CPT/HCPCS: 36415; 80048; 83036

== ENCOUNTER 2024-07-18 15:00 | Outpatient (CLI) | payer MEDICARE ==
[2024-07-18 17:53] LABS: BASOPHILS % (AUTO) 0.4 %; EOSINOPHILS # (AUTO) 0.1 10^3/uL (0.0-0.7); EOSINOPHILS % (AUTO) 0.5 %; HCT - HEMATOCRIT 39.7 % (37.0-47.0); HGB - HEMOGLOBIN 13.5 g/dL (12.0-16.0); LYMPHOCYTES % (AUTO) 21.4 %; MEAN CORPUSCULAR HEMOGLOBIN 31.5 pg (27.0-31.0); MEAN CORPUSCULAR VOLUME 92.5 fL (81.0-99.0); MONOCYTES # (AUTO) 0.9 10^3/uL (0.0-1.0); MONOCYTES % (AUTO) 10.1 %; NEUTROPHILS # (AUTO) 6.3 10^3/uL (1.5-6.6); NEUTROPHILS % (AUTO) 67.4 %; PLT - PLATELET COUNT 216 10^3/uL (130-450); RED BLOOD COUNT 4.29 10^6/uL (4.20-5.40); RED CELL DISTRIBUTION WIDTH 12.4 % (12.0-15.0); WHITE BLOOD COUNT 9.3 x10^3/uL (4.8-10.8)
[2024-07-18 18:25] LABS: CALCIUM 9.3 mg/dL (8.5-10.3); CREATININE 0.7 mg/dL (0.6-1.3); CRP - C-REACTIVE PROTEIN 3.7 mg/dL (<0.5); POTASSIUM 3.9 mmol/L (3.5-4.5); URIC ACID 7.8 mg/dL (2.3-6.6)
== END 2024-07-18 15:15 | disposition home or self-care (01) ==
LOC: LAB.N 15:00
PROVIDERS: ATTEND Physician Assistant Medical
DX: M10.9 Gout, unspecified (principal)
CPT/HCPCS: 36415; 80048; 84550; 85025; 86140